=== PATIENT | female | born 1980 | race Caucasian/White ===

== ENCOUNTER 2016-11-28 13:48 | Day surgery (SDC) | payer OTHER ==
[~2016-11-28] VITALS: Ht 165.1 cm; Wt 70.1 kg
[2016-11-28 15:28] VITALS: Ht 165.1 cm; Wt 70.1 kg
[2016-11-28 16:38] VITALS: BP 110/59; PULSE 65; RESP 16
[2016-11-28] MEDS ORDERED: MIDAZOLAM 1 MG/ML 2 ML INJ ONE ×3 (17:18)
[2016-11-28] MEDS ORDERED: FENTAnyl 50 MCG/ML VIAL ONE (17:18)
[2016-11-28 17:34] VITALS: BP 96/53; PULSE 84; RESP 12
--- NOTE | 2016-12-22 15:14 | GILP ---
DATE OF PROCEDURE: 11/28/2016 PROCEDURE: Esophagogastroduodenoscopy with biopsies. BRIEF HISTORY AND INDICATIONS: The patient is being evaluated for abdominal pain and dyspepsia. PREMEDICATION: Monitored anesthesia care by anesthesiologist. SURGEON: Darrell Camarillo MD. INSTRUMENT USE: Olympus panendoscope. TECHNIQUE: After informed consent, with the patient/relatives understanding the procedure, its indic ations, potential risks and complications, including but not limited to: allergic reaction, bleeding , perforation or infection, and after all pertinent questions were answered to the patients satisfac tion, the patient/relatives signed witnessed informed consent. Following this, premedication was administered slowly IV push under careful cardiovascular and respi ratory monitoring with pulse oximetry, automatic blood pressure and winding machine operator. Once the sedative effect was achieved the patient was place in the left lateral decubitus, the panen doscope was introduced and advanced under visual control. Careful examination of the upper gastrointestinal tract, both on insertion as well as withdrawal of the instrument disclosed the following findings: TECHNIQUE: After informed consent, with the patient/relatives understanding the procedure, its indic ations, potential risks and complications, including but not limited to: allergic reaction, bleeding , perforation or infection, and after all pertinent questions were answered to the patients satisfac tion, the patient/relatives signed witnessed informed consent. Following this, premedication was administered slowly IV push under careful cardiovascular and respi ratory monitoring with pulse oximetry, automatic blood pressure and winding machine operator. Once the sedative effect was achieved the patient was place in the left lateral decubitus, the panen doscope was introduced and advanced under visual control. Careful examination of the upper gastrointestinal tract, both on insertion as well as withdrawal of the instrument disclosed the following findings: ESOPHAGUS: The distal esophagus shows severe erythema, edema and superficial erosion of the mucosa. STOMACH: Upon entrance to the stomach, air was insufflated, the gastric linn distended normally. The mucosa of the fundus, body and antrum of the stomach shows erythema and edema of a mild degree. Biopsies were obtained to rule out H. pylori infection. PYLORUS: The pylorus appears patent and within normal limits, with no evidence of gastric outlet obs truction. DUODENUM: The duodenal mucosa was carefully examined in the duodenal bulb as well as the second port ion of the duodenum and appears unremarkable with no evidence of duodenitis, ulcer or neoplasm. The instrument was then withdrawn, the patient tolerated the procedure well and was transfer out of the endoscopy suite awake, and in good condition to continue recovery under observation IMPRESSION: 1. Severe erosive esophagitis. Biopsies were obtained. 2. Mild gastritis, rule out Helicobacter. Biopsies obtained. PLAN: The patient will be treated with PPIs, i.e. omeprazole 40 mg daily. Further recommendation w ill depend on patient's clinical course as well as review of biopsies. Dictated By: DARRELL LOCK Conf#: [id number] DID#: [id number]
== END 2016-11-28 19:25 | disposition home or self-care (01) ==
LOC: GIL 13:48
PROVIDERS: ATTEND Internal Medicine Gastroenterology
DX: K21.0 Gastro-esophageal reflux disease with esophagitis (principal); K29.70 Gastritis, unspecified, without bleeding
CPT/HCPCS: 43239; 84703; 88305; 88312; 88313; J2250; J3010; Z7610